=== PATIENT | female | born 1985 | race Caucasian/White ===

== ENCOUNTER → 2020-07-23 08:56 | Outpatient (CLI) | payer OTHER, SELFPAY ==
--- NOTE | ~2020-07-23 | MR_ITS ---
EXAMINATION: MR lumbar spine wo con EXAM DATE: 07/23/2020 09:30 INDICATION: Low back pain. TECHNIQUE: Multi-sequential, multiplanar MR images of the lumbar spine were obtained without contrast . Sagittal T1, T2, T2 fat saturation images. Axial T2 weighted images. There is no prior study for comparison. FINDINGS: Rudimentary L5-S1 disc. There is mild to moderate disc disease at L4-5, mild at L3-4. The v ertebral body and disc heights are otherwise well maintained. The vertebral bodies are aligned in the AP dimension. Small hemangioma inferior endplate of T12. The vertebral body marrow is otherwise norm al in signal intensity. The conus medullaris terminates at the T12-L1 level and has normal signal int ensity and morphology. Paraspinal soft tissue is unremarkable. Level by level evaluation: T12-L1: Disc does not extend beyond the endplate margin. Facet arthropathy: None. Neural foraminal stenosis: No stenosis. Central canal stenosis: No stenosis. L1-L2: Disc does not extend beyond the endplate margin. Facet arthropathy: Mild. Neural foraminal stenosis: No stenosis. Central canal stenosis: No stenosis. L2-L3: Disc does not extend beyond the endplate margin. Facet arthropathy: Mild. Neural foraminal stenosis: No stenosis. Central canal stenosis: No stenosis. L3-L4: There is a mild diffuse disc bulge. Facet arthropathy: Mild. Neural foraminal stenosis: No stenosis. Central canal stenosis: Mild. L4-L5: There is a moderate diffuse disc bulge. Facet arthropathy: Mild to moderate. Neural foraminal stenosis: Mild to moderate left, mild right. Central canal stenosis: Moderate. L5-S1: Rudimentary disc. Facet arthropathy: None. Neural foraminal stenosis: No stenosis. Central canal stenosis: No stenosis. IMPRESSION: 1. Transitional L5 segment with rudimentary L5-S1 disc. 2. L4-5 moderate disc bulge and central canal stenosis. 3. Otherwise mild lumbar spondylosis. Reviewed, dictated and finalized at location A.
== END ==
PROVIDERS: Visit Provider Physical Medicine & Rehabilitation
DX: M47.26 Other spondylosis with radiculopathy, lumbar region (principal)
CPT/HCPCS: 72148

== ENCOUNTER 2020-11-14 12:23 | Outpatient (CLI) | payer OTHER, SELFPAY ==
--- NOTE | ~2020-11-14 | MR_ITS ---
EXAMINATION: MR knee LT wo con DATE: 11/14/2020 12:58 INDICATION: Acute onset posterolateral left knee pain and swelling 3 months prior TECHNIQUE: Magnetic resonance imaging (MRI) of the left knee was performed without intravenous contra st. Sequences included coronal PD-weighted FSE, coronal PD-weighted FS FSE, sagittal T2-weighted FSE , sagittal PD-weighted FS FSE and axial PD weighted fat saturated FSE. COMPARISON: None. FINDINGS: Medial compartment: Medial meniscus is normal. Mild partial-thickness cartilage loss with scattered chondral surface regu larity along the anterior to central weightbearing medial femoral condyle. Lateral compartment: Lateral meniscus is normal. Partial-thickness cartilage loss with chondral surface regularity along t he weightbearing lateral femoral condyle and anterior aspect of the lateral tibial plateau. More foca l 10 x 6 mm deeper chondral ulceration without degenerative subchondral changes at the central weight bearing lateral femoral condyle. Patellofemoral compartment: There is some chondral fissuring involving less than 50% the cartilage thickness at the medial patell ar facet. Deeper chondral fissuring patchy trochlear groove and inferior aspect of the medial trochle a, the latter with underlying cortical irregularity and minimal subarticular edema. Ligaments and tendons: Anterior and posterior cruciate ligaments are normal. The medial collateral ligament and fibular zbigniew ateral ligament complex are normal. The extensor mechanism is normal. The visualized medial and later al hamstring tendons as well as the iliotibial band are normal. Fluid: Small left knee joint effusion. No loose osteochondral bodies identified. Small Carvalho's cyst. Mild am ount of fluid anterior to the anterior tibial tuberosity consistent with mild pretibial bursitis. Osseous/other: Normal marrow signal. No fracture or pathologic marrow replacing process. IMPRESSION: 1. Mild tricompartmental osteoarthritis with scattered moderate grade chondromalacia and small region al of high-grade chondral malacia the medial trochlea. 2. Small knee joint effusion and small Carvalho's cyst. 3. Mild pretibial bursitis. Reviewed, dictated and finalized at location A. 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 Mild tricompartmental osteoarthritis with scattered moderate grade chondroma lacia and small regional of high-grade chondral malacia the medial trochlea. 2. Small knee joint effusion and small Carvalho's cyst. 3. Mild pretibial bursitis.
== END 2020-11-14 12:24 ==
PROVIDERS: PCP Family Medicine; Visit Provider Physical Medicine & Rehabilitation
DX: M25.462 Effusion, left knee (principal); M17.12 Unilateral primary osteoarthritis, left knee; M76.42 Tibial collateral bursitis [Pellegrini-Stieda], left leg
CPT/HCPCS: 73721

== ENCOUNTER 2023-02-25 09:53 | Emergency (ER) | payer OTHER, SELFPAY ==
[2023-02-25 09:55] VITALS: BP 163/110; PULSE 96; RESP 18; TEMP 36.4; O2SAT 96
--- NOTE | 2023-02-25 10:05 | ECG_ITS ---
Measurements Intervals [place] Rate: 89 P: 30 PA: 133 QRS: 30 QRSD: 96 T: 8 QT: 361 QTc: 440 Interpretive Statements SINUS RHYTHM WITH SINUS ARRHYTHMIA BORDERLINE ST-T WAVE ABNORMALITY- INFERIOR LEADS BASELINE ARTIFACT- I, II, III, AVR, AVL, AVF, V4-V6 BORDERLINE ECG NO PREVIOUS ECG AVAILABLE FOR COMPARISON Electronically Signed On 02-25-2023 11:45:07 CDT by Aaron Sun D.O.
[2023-02-25] MEDS: LORazepam INJ (*CRX) 2 MG/ML VIAL 1 MG IV PUSH (10:55)
[2023-02-25 10:59] LABS: Basophils Percent Auto 0.2 % (0.2-1.2); Hematocrit 41.2 % (37.0-47.0); Hemoglobin 13.8 g/dL (12.0-15.0); Immature Granulocyte Absolute 0.02 K/mm3 (0.00-0.031); Immature Granulocyte Percent A 0.4 % (0-0.5); Lymphocytes Absolute Auto 1.19 K/mm3 (0.9-3.2); Mean Corpuscular HGB Conc 33.5 g/dl (32-36); Mean Corpuscular Hemoglobin 31.9 pg (26-34); Mean Corpuscular Volume 95.4 fl (80-100); Mean Platelet Volume 10.2 fl (7.4-10.4); Monocytes Absolute Auto 0.4 K/mm3 (0.1-0.6); Monocytes Percent Auto 6.7 % (2.6-8.5); Neutrophils Absolute Auto 4.1 K/mm3 (1.3-6.7); Neutrophils Percent Auto 71.7 % (45.5-73.1); Platelet Count Result 262 k/mm3 (150-375); Red Blood Count 4.32 M/mm3 (4.2-5.4); White Blood Count 5.7 K/mm3 (4.5-10.0)
[2023-02-25 11:09] LABS: Anion Gap 7 mmol/L (8-16); Blood Urea Nitrogen 14 mg/dL (7-17); Calcium 9.6 mg/dL (8.4-10.2); Carbon Dioxide 24 mmol/L (22-30); Chloride 108 mmol/L (98-107); Estimated CRCL calculation 130 ml/min; Estimated Glomerular Filt Rate > 60; Glucose 119 mg/dL (65-110); Potassium 3.9 mmol/L (3.4-5.0); Sodium 139 mmol/L (137-145)
--- NOTE | 2023-02-25 11:26 | ED.ANXIETY ---
HPI - Anxiety General Chief Complaint: Anxiety Stated Complaint: panic attacks Time Seen by Provider: 02/25/23 10:05 History of Present Illness HPI narrative: Patient with history of panic attacks, seeing a psychiatrist for this, presents here with a panic attack. She has been very anxious about going back to her workplace since she had a leave of absence and had to change jobs due to stress, and ongoing that is worse today later have a panic she describes as uncontrollable crying and feeling a lot of anxiety. No chest pain or shortness of breath. Related Data Home Medications Medication Instructions Recorded Confirmed levothyroxine 50 mcg capsule 50 mcg PO DAILY 03/07/20 02/25/23 quetiapine 50 mg tablet (Seroquel) 50 mg PO BID 03/07/20 02/25/23 zolpidem 12.5 mg tablet,extended 12.5 mg PO ONCE 03/07/20 02/25/23 release,multiphase clomipramine 75 mg capsule 75 mg PO DAILY 01/22/23 02/25/23 ergocalciferol (vitamin D2) 1,000 1,000 unit PO DAILY 01/22/23 02/25/23 unit capsule mecobalamin (vitamin B12) 10,000 1,000 mcg IM .3xweekly 01/22/23 02/25/23 mcg solution for injection lorazepam 0.5 mg tablet 0.5 mg PO TID PRN Sleep 02/17/23 02/25/23 vortioxetine 5 mg tablet 10 mg PO DAILY 02/17/23 02/25/23 (Trintellix) Allergies Allergy/AdvReac Type Severity Reaction Status Date / Time No Known Allergies Allergy Verified 02/25/23 09:53 Review of Systems Review of Systems: CONST: No fever. HEENT: No sore throat C/V: No chest pain RESP: No cough GI: No abdominal pain : No dysuria. M/S: No joint pain. SKIN: No rash. NEURO: [No headache or focal numbness or weakness] PSYCH: Anxiety PMFSH Past Medical History Medical History Anemia iron infusions 2018 Anxiety Bipolar 1 disorder Bulging disc Depression Diarrhea premenstrual Diarrhea Family history of breast cancer Frequent UTI Hypothyroidism Insomnia Migraine Rectal bleeding Screening mammogram for breast cancer (11/01/19) negative Varicella Surgical History Surgical History H/O left knee surgery (~2003) History of bilateral salpingectomy (03/17/19) hscope d&c/Novasure endometrial ablation/b lscope salpingectomy--menometrorrhagia, dysmenorrhea, uterine fibroids History of dilation and curettage (03/17/19) hscope d&c/Novasure endometrial ablation/b lscope salpingectomy--menometrorrhagia, dysmenorrhea, uterine fibroids History of endometrial ablation (03/17/19) hscope d&c/Novasure endometrial ablation/b lscope salpingectomy--menometrorrhagia, dysmenorrhea, uterine fibroids Hx of tonsillectomy (~1986) Family History Family History Grandparent Family history of malignant neoplasm Family history of lung cancer Diabetes mellitus maternal grandfather Breast cancer maternal grandmother Mother Hypertension Other Breast cancer maternal aunt Other Cerebrovascular accident Social History Social History Smoking status: Never smoker Second hand tobacco smoke exposure: No Alcohol intake: current Drinks per week: 5 Substance use: never Substance use type: does not use Lack of Transportation: No Lack of Food: Never True Current Housing: I Have Housing Concerned About Future Housing: No Difficulty Paying Gas/Electric Bills: No Difficulty Paying for Meds: No Currently Unemployed: No Education: Trade/Vocational Certificate Difficulty w/ Childcare or Family Care: No Living arrangements: with family Additional living arrangements comments: Occupation/Education: occupation 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
[2023-02-25 11:30] VITALS: BP 128/69; PULSE 88; RESP 16; O2SAT 98
== END 2023-02-25 11:37 | disposition home or self-care (01) ==
PROVIDERS: Emergency Provider Emergency Medicine; PCP Family Medicine
DX: F41.0 Panic disorder [episodic paroxysmal anxiety] (principal); F31.9 Bipolar disorder, unspecified; E03.9 Hypothyroidism, unspecified; Z87.440 Personal history of urinary (tract) infections; Z90.79 Acquired absence of other genital organ(s); R94.31 Abnormal electrocardiogram [ECG] [EKG]
CPT/HCPCS: 36415; 80048; 85025; 93005; 96374; 99284; J2060

== ENCOUNTER 2023-03-12 09:00 | Outpatient (NON) | payer OTHER, SELFPAY | END 2023-03-12 09:01 | disposition home or self-care (01) | LOC: ANHLAB 03-13 08:23 | PROVIDERS: PCP Family Medicine; Visit Provider Internal Medicine Gastroenterology | DX: K62.5 Hemorrhage of anus and rectum (principal) | CPT/HCPCS: 88305 ==

== ENCOUNTER 2023-03-12 09:32 | Day surgery (SDC) | payer OTHER, SELFPAY ==
[2023-02-25 09:56] VITALS: BMI 32.8
--- NOTE | 2023-03-12 08:24 | WPDANESEPPF ---
Anes - Initial Pre Proc Eval Procedure: Operation Date: 03/12/23 11:00 Proposed Procedures p Diagnostic Colonoscopy - Alessandro Smyth MD Date/Time: 03/12/23 08:24 Surgeon: Alessandro Smyth MD Pre Op Diagnosis: Diarrhea, Hemorrhage of Anus and Rectum Patient Data Age: 37 Gender: F Height: 1.73 m Weight: 98 kg Allergies Allergy/AdvReac Type Severity Reaction Status Date / Time No Known Allergies Allergy Verified 03/12/23 10:04 Home Medications Medication Instructions Recorded Confirmed Type levothyroxine 50 mcg capsule 50 mcg PO DAILY 03/07/20 03/12/23 History quetiapine 50 mg tablet (Seroquel) 50 mg PO BID 03/07/20 03/12/23 History zolpidem 12.5 mg tablet,extended 12.5 mg PO ONCE 03/07/20 03/12/23 History release,multiphase clomipramine 75 mg capsule 75 mg PO DAILY 01/22/23 03/12/23 History ergocalciferol (vitamin D2) 1,000 1,000 unit PO DAILY 01/22/23 03/12/23 History unit capsule mecobalamin (vitamin B12) 10,000 1,000 mcg IM .3xweekly 01/22/23 03/12/23 History mcg solution for injection dicyclomine 20 mg tablet 20 mg PO TID PRN abdominal 02/05/23 03/12/23 Rx discomfort #60 tabs lorazepam 0.5 mg tablet 0.5 mg PO TID PRN Sleep 02/17/23 03/12/23 History vortioxetine 5 mg tablet 10 mg PO DAILY 02/17/23 03/12/23 History (Trintellix) sodium,potassium,mag sulfates 17.5 See Rx Instructions PO .COMPLEX 02/24/23 03/12/23 Rx gram-3.13 gram-1.6 gram oral soln #354 mL (Suprep Bowel Prep Kit) Patient hx anesthesia problems: none Family hx anesthesia problems: none Results Review: All pre-operative results and documents have been reviewed as part of the pre-operative evaluation. [facility] Past Medical History Medical History Anemia iron infusions 2019 Anxiety Bipolar 1 disorder Bulging disc Depression Diarrhea premenstrual Diarrhea Family history of breast cancer Frequent UTI Hypothyroidism Insomnia Migraine Rectal bleeding Screening mammogram for breast cancer (11/01/19) negative Varicella Surgical History Surgical History H/O left knee surgery (~2003) History of bilateral salpingectomy (03/17/19) hscope d&c/Novasure endometrial ablation/b lscope salpingectomy--menometrorrhagia, dysmenorrhea, uterine fibroids History of dilation and curettage (03/17/19) hscope d&c/Novasure endometrial ablation/b lscope salpingectomy--menometrorrhagia, dysmenorrhea, uterine fibroids History of endometrial ablation (03/17/19) hscope d&c/Novasure endometrial ablation/b lscope salpingectomy--menometrorrhagia, dysmenorrhea, uterine fibroids Hx of tonsillectomy (~1986) Family History Family History Grandparent Family history of malignant neoplasm Family history of lung cancer Diabetes mellitus maternal grandfather Breast cancer maternal grandmother Mother Hypertension Other Breast cancer maternal aunt Other Cerebrovascular accident Social History Social History Smoking status: Never smoker Second hand tobacco smoke exposure: No Alcohol intake: current Drinks per week: 5 Substance use: never Substance use type: does not use Lack of Transportation: No Lack of Food: Never True Current Housing: I Have Housing Concerned About Future Housing: No Difficulty Paying Gas/Electric Bills: No Difficulty Paying for Meds: No Currently Unemployed: No Education: Trade/Vocational Certificate Difficulty w/ Childcare or Family Care: No Living arrangements: with family Additional living arrangements comments: Occupation/Education: occupation 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
[2023-03-12 09:55] VITALS: BP 144/103; PULSE 75; RESP 20; TEMP 36.7; O2SAT 98
[2023-03-12] MEDS: LACTATED RINGERS 1,000 ML 150 ML IV CONT (10:19)
--- NOTE | 2023-03-12 10:54 | WPDHPUPDATE1 ---
History and Physical Update Update Date/Time: 03/12/23 10:54 History and Physical has been reviewed, including an updated exam of the patient. There are NO changes in the patient's condition. Risks, benefits, and alternatives have been discussed and questions answered. Patient agrees to proceed with procedure.
[2023-03-12 12:13] VITALS: BP 131/85; PULSE 75; RESP 16; O2SAT 99
[2023-03-12 12:23] VITALS: BP 135/95; PULSE 69; RESP 16; O2SAT 100
[2023-03-12 12:33] VITALS: BP 138/94; PULSE 65; RESP 16; O2SAT 98
--- NOTE | 2023-03-12 12:58 | WPDANESPN ---
Anes - Prog Note Post-Op Date/Time: 03/12/23 12:58 Cardiovascular status: normal Respiratory status: normal Airway patency: baseline Mental status: baseline Post-Op hydration status: normal Vital Signs: Last Vital Signs Temp 36.7 C 03/12/23 09:55 Pulse 65 03/12/23 12:33 Resp 16 03/12/23 12:33 BP 138/94 H 03/12/23 12:33 Pulse Ox 98 03/12/23 12:33 O2 Del Method Room Air 03/12/23 12:33 Pain Score (VAS): 0 I/O: Intake & Output 03/11/23 03/12/23 03/12/23 23:59 07:59 15:59 Intake Total 650 Balance 650 Post-procedural complaints: none Patient Feedback: Patient satisfied with anesthetic care. Other Findings: Patient vital signs back to baseline. Patient denies nausea and vomiting. Patient's pain under control. Patient OK for discharge.
== END 2023-03-12 12:49 | disposition home or self-care (01) ==
PROVIDERS: PCP Family Medicine; Visit Provider Internal Medicine Gastroenterology
PROC: 0DJD8ZZ Inspection of Lower Intestinal Tract, Via Natural or Artificial Opening Endoscopic (ICD-10-PCS; CPT 45378; principal; 2023-03-12 11:00)
DX: K62.5 Hemorrhage of anus and rectum (principal)
CPT/HCPCS: 45380

== ENCOUNTER 2023-04-03 07:26 | Outpatient (CLI) | payer OTHER, SELFPAY ==
--- NOTE | ~2023-04-03 | CT_ITS ---
Pre and postcontrast Head CT History: Anxiety disorder Technique: Axial non-contrast imaging of the brain was performed prior to and following intravenous administration of 100 cc of Omnipaque 350 contrast material. Dose reduction technique was used on thi s scan by utilizing automated exposure control and iterative reconstruction technique. The dose-lengt h product (DLP) was 1210.67 mGy-cm. Findings: There is no evidence of intracranial hemorrhage, mass lesion, or acute infarct. Brain par enchyma appears normal. The ventricles and subarachnoid spaces are normal in size. The calvarium ap pears normal. The visualized paranasal sinuses and mastoid air cells are clear. No abnormal postcontrast enhancement seen. Impression: No significant abnormality seen. Reviewed, dictated and finalized at [facility]. Impression: No significant abnormality seen.
== END 2023-04-03 07:27 | disposition home or self-care (01) ==
LOC: ANHIMG 07:31
PROVIDERS: PCP Family Medicine; Visit Provider Physician Assistant Medical
DX: F41.9 Anxiety disorder, unspecified (principal); F68.8 Other specified disorders of adult personality and behavior
CPT/HCPCS: 70470; Q9967

== ENCOUNTER 2024-06-15 08:15 | Emergency (ER) | payer OTHER, SELFPAY ==
[2024-06-15] VITALS (16 sets, daily range): BP systolic 171–189; BP diastolic 108–122; PULSE 81–96; RESP 15–28; TEMP 36.8; O2SAT 97–100
--- NOTE | 2024-06-15 09:03 | ED.RECABL ---
HPI - Recheck/Abnormal Lab/Rx General Chief Complaint: Recheck/Abnormal Lab/Rx Stated Complaint: high blood pressure Time Seen by Provider: 06/15/24 08:43 Source: patient Mode of arrival: ambulatory Limitations: no limitations History of Present Illness HPI narrative: Patient presents with concern for elevated blood pressure. She denies any symptoms. In particular she denies any chest pain, shortness of breath, slurred speech, altered mental status, unilateral symptoms, decreased urine production, lower extremity edema. She notes that this has been monitored for years and she was told that she was borderline of having hypertension before and there were continue to monitor at however at her most recent appointment with her primary care physician within the last week it was normal at the office so she was not started on antihypertensive agent. However, later that day at her Ob Gyne appointment her blood pressure was elevated to 170/118. She was advised to obtain a cough and start monitoring at home which she did and her blood pressure has been size systolic 195 mm Hg. No history of diabetes mellitus although she had been told that she might be prediabetic. Her primary care physician Dr. Burnham had ordered a hemoglobin A1c and a lipid panel which she will be performing in the outpatient setting . Related Data Home Medications Medication Instructions Recorded Confirmed levothyroxine 50 mcg capsule 50 mcg PO DAILY 03/07/20 06/14/24 quetiapine 50 mg tablet (Seroquel) 50 mg PO BID 03/07/20 06/14/24 zolpidem 12.5 mg tablet,extended 12.5 mg PO ONCE 03/07/20 06/14/24 release,multiphase clomipramine 75 mg capsule 75 mg PO DAILY 01/22/23 06/14/24 ergocalciferol (vitamin D2) 1,000 1,000 unit PO DAILY 01/22/23 06/14/24 unit capsule mecobalamin (vitamin B12) 10,000 1,000 mcg IM .3xweekly 01/22/23 06/14/24 mcg solution for injection lorazepam 0.5 mg tablet 0.5 mg PO TID PRN Sleep 02/17/23 06/14/24 vortioxetine 5 mg tablet 10 mg PO DAILY 02/17/23 06/14/24 (Trintellix) Allergies Allergy/AdvReac Type Severity Reaction Status Date / Time No Known Allergies Allergy Verified 06/15/24 08:23 [facility] Past Medical History Medical History Anemia iron infusions 2018 Anxiety Bipolar 1 disorder Bulging disc Depression Diarrhea premenstrual Diarrhea Family history of breast cancer Frequent UTI Hypothyroidism Insomnia Migraine Rectal bleeding Screening mammogram for breast cancer (11/01/19) negative Varicella Surgical History Surgical History H/O left knee surgery (~2003) History of bilateral salpingectomy (03/17/19) hscope d&c/Novasure endometrial ablation/b lscope salpingectomy--menometrorrhagia, dysmenorrhea, uterine fibroids History of dilation and curettage (03/17/19) hscope d&c/Novasure endometrial ablation/b lscope salpingectomy--menometrorrhagia, dysmenorrhea, uterine fibroids History of endometrial ablation (03/17/19) hscope d&c/Novasure endometrial ablation/b lscope salpingectomy--menometrorrhagia, dysmenorrhea, uterine fibroids Hx of tonsillectomy (~1986) Family History Family History Grandparent Family history of malignant neoplasm Family history of lung cancer Diabetes mellitus maternal grandfather Breast cancer maternal grandmother Mother Hypertension Other Breast cancer maternal aunt Other Cerebrovascular accident Social History Social History Smoking status: Never smoker Second hand tobacco smoke exposure: No Alcohol intake: current Drinks per week: 5 Substance use: never Substance use type: does not use Lack of Transportation: No Lack of Food: Never True Current Housing: I Have Housing Concerned About Future Housing: No Difficulty Paying G
[2024-06-15 09:27] LABS: BEDSIDEPREGUCG Negative
[2024-06-15 09:30] LABS: Basophils Percent Auto 0.2 % (0.2-1.2); Hemoglobin 12.7 g/dL (12.0-15.0); Immature Granulocyte Absolute 0.02 K/mm3 (0.00-0.031); Immature Granulocyte Percent A 0.4 % (0-0.5); Lymphocytes Absolute Auto 1.23 K/mm3 (0.9-3.2); Lymphocytes Percent Auto 21.6 % (18.3-44.2); Mean Corpuscular HGB Conc 32.6 g/dl (32-36); Mean Corpuscular Hemoglobin 29.5 pg (26-34); Mean Corpuscular Volume 90.7 fl (80-100); Mean Platelet Volume 9.8 fl (7.4-10.4); Monocytes Absolute Auto 0.5 K/mm3 (0.1-0.6); Monocytes Percent Auto 7.9 % (2.6-8.5); Neutrophils Percent Auto 69.9 % (45.5-73.1); Platelet Count Result 304 k/mm3 (150-375); White Blood Count 5.7 K/mm3 (4.5-10.0)
[2024-06-15 09:33] LABS: Add Urine Microscopic? NO; Appearance Urine Clear (Clear); Bilirubin Urine Negative (Negative); Blood Urine Negative (Negative); Color Urine Yellow (Yellow); Glucose Urine UA Negative (Negative); Ketones Urine Negative (Negative); Leukocyte Esterase Ur Negative LEU/UL (Negative); Nitrate Urine Negative (Negative); Protein Urine Negative (Negative); Specific Grav Ur 1.018 (1.001-1.035); Urobilinogen Urine 0.2 mg/dL (<2.0); pH Urine 6.5 (5.0-9.0)
[2024-06-15 09:47] LABS: Alanine Aminotransferase 79 U/L (6-35); Albumin Level 4.4 g/dL (3.5-5.1); Alkaline Phosphatase 76 U/L (38-126); Anion Gap 12 mmol/L (4-12); Aspartate Amino Transferase 66 U/L (14-36); Bilirubin,Total 0.3 mg/dL (0.2-1.3); Blood Urea Nitrogen 11 mg/dL (7-17); Calcium 9.2 mg/dL (8.4-10.2); Carbon Dioxide 23 mmol/L (22-30); Chloride 101 mmol/L (98-107); Estimated CRCL calculation 114 ml/min; Estimated Glomerular Filt Rate > 60; Glucose 112 mg/dL (65-110); Magnesium 2.3 mg/dL (1.6-2.3); Potassium 4.2 mmol/L (3.4-5.0); Sodium 136 mmol/L (137-145)
== END 2024-06-15 10:28 | disposition home or self-care (01) ==
PROVIDERS: Emergency Provider Student in an Organized Health Care Education/Training Program; PCP Family Medicine
DX: I10 Essential (primary) hypertension (principal); R74.01 Elevation of levels of liver transaminase levels; E03.9 Hypothyroidism, unspecified; F41.9 Anxiety disorder, unspecified; F31.9 Bipolar disorder, unspecified; Z87.440 Personal history of urinary (tract) infections; Z86.2 Personal history of diseases of the blood and blood-forming organs and certain disorders involving the immune mechanism; Z90.79 Acquired absence of other genital organ(s); Z79.899 Other long term (current) drug therapy
CPT/HCPCS: 36415; 80053; 81003; 81025; 83735; 85025; 99283